=== PATIENT | female | born 1950 | race Caucasian/White ===

== ENCOUNTER 2017-06-14 18:25 | Emergency (ER) | payer OTHER, MEDICAID ==
[~2017-06-14] VITALS: Ht 157.5 cm; Wt 57.5 kg
[~2017-06-14 18:25] MED LIST: SYNT75TA PO
[2017-06-14 18:28] VITALS: BP 189/79; PULSE 72; RESP 18; TEMP 99.1; O2SAT 99
[2017-06-14] MEDS ORDERED: ORPHENADRINE INJ 60 MG/2 ML AMP IM ONE (19:15)
[2017-06-14] MEDS ORDERED: KETOROLAC TROMETHAMINE 60 MG/2 ML (IM) VIAL IM ONE (19:15)
--- NOTE | 2017-06-14 19:42 | PD ---
HPI Chief Complaint: Back/ Neck Pain or Injury Time Seen by Provider: 19:15 Travel History International Travel<30 days: No Contact w/Intl Traveler<30days: No Traveled to known affect area: No History of Present Illness HPI Patient is a 66-year-old female presenting to the emergency for evaluation of right low back pain. Patient states it's been ongoing for approximately week and a half. She has pain when she ambulates and when she extends her leg. The pain radiates from her lower back down the back of her leg. Pain is an 8 out of 10 and states that shooting. Patient has not taken any medications to alleviate the pain. She called her primary doctor today who advised her to come to the emergency department to have x-rays done and he would see her in the office tomorrow. Patient's past medical history includes rheumatoid arthritis, hypothyroidism, diabetes. Patient denies any numbness or weakness in her lower extremities, no bladder or bowel incontinence, no saddle paresthesia. PFSH Past Medical History High Cholesterol: Yes Diabetes: Yes Diminished Hearing: Yes (LEFT ) Diverticulitis: Yes Hypertension: Yes Immune Disorder: Yes (rheumatoid arthritis) Musculoskeletal: Yes (BACK PROBLEMS) Menopausal: Yes Past Surgical History AICD: No Cholecystectomy: Yes Joint Replacement: No Pacemaker: No Other Surgery: No Social History Alcohol Use: No Tobacco Use: No Substance Use: No Allergies-Medications (Allergen,Severity, Reaction): Coded Allergies: ipratropium (Verified Allergy, Severe, 06/14/17) Reported Meds & Prescriptions Reported Meds & Active Scripts Active Tramadol (Tramadol HCl) 50 Mg Tab 50 Mg PO Q6H PRN Meloxicam 15 Mg Tab 15 Mg PO DAILY PRN Reported Synthroid 75 mcg (Levothyroxine Sodium) 75 Mcg Tab 75 Mcg PO DAILY Review of Systems Except as stated in HPI: all other systems reviewed are Neg Musculoskeletal: Positive: Arthralgias, Limited ROM, Pain Physical Exam Narrative GENERAL: Well-developed, well-nourished, alert female. Appears uncomfortable, in no acute distress. SKIN: Warm and dry. HEAD: Atraumatic. Normocephalic. EYES: Pupils equal and round. No scleral icterus. No injection or drainage. ENT: No nasal bleeding or discharge. Mucous membranes pink and moist. NECK: Trachea midline. No JVD. CARDIOVASCULAR: Regular rate and rhythm. RESPIRATORY: No accessory muscle use. Clear to auscultation. Breath sounds equal bilaterally. GASTROINTESTINAL: Abdomen soft, non-tender, nondistended. Hepatic and splenic margins not palpable. MUSCULOSKELETAL: Extremities without clubbing, cyanosis, or edema. No obvious deformities. Tenderness to palpation over right SI joint. Negative Homans sign on right, 2+ dorsalis pedal pulses bilaterally. NEUROLOGICAL: Awake and alert. No obvious cranial nerve deficits. Motor grossly within normal limits. Five out of 5 muscle strength in the arms and legs. Normal speech. PSYCHIATRIC: Appropriate mood and affect; insight and judgment normal. Data Data Last Documented VS Vital Signs Date Time Temp Pulse Resp B/P (MAP) Pulse Ox O2 Delivery O2 Flow Rate FiO2 06/14/17 18:28 99.1 72 18 189/79 (115) 99 Room Air Orders Orders Spine, Lumbar - Ltd (Ap & Lat) (06/14/17 ) Sacroiliac Joints, Bilateral (06/14/17 ) Ketorolac Inj (Toradol Inj) (06/14/17 19:15) Orphenadrine Inj (Norflex Inj) (06/14/17 19:15) MDM Medical Decision Making Medical Screen Exam Complete: Yes Emergency Medical Condition: Yes Interpretation(s) Vital Signs Date Time Temp Pulse Resp B/P (MAP) Pulse Ox O2 Delivery O2 Flow Rate FiO2 06/14/17 18:28 99.1 72 18 189/79 (115) 99 Room Air Differential Diagnosis Sciatic versus discogenic pain versus muscle strain versus muscle spasm versus other Narrative Course Patient is a 66-year-old female that presented for evaluation of right low back pain that has been ongoing for 1 week, there was no preceding injury or trauma or discerning activity. Physical examination appears consistent with sciatica. Imaging was ordered and pending. Patient given Toradol and Norflex for the pain. 2039 patient reassessed, she reports improvement in her pain after administration of Toradol and Norflex. X-rays which were read by the radiologist showed no acute abnormalities, there were degenerative changes noted to the lumbar spine, sacroiliac joints are intact. Exam again appears most consistent with sciatica. Patient is to follow -up with her primary doctor tomorrow as scheduled, she will be given a short course of oral pain medication. She is encouraged to apply warm moist heat to affected area, continue range of motion exercises, avoid exacerbating activities , avoid bed rest. She is encouraged to return to emergency department for any new or worsening symptoms. Patient verbalized understanding of these instructions. Patient is stable for discharge. Diagnosis Primary Impression: Sciatica Qualified Codes: M54.31 - Sciatica, right side Referrals: Primary Care Physician 1 day Patient Instructions: General Instructions, Sciatica (ED) Additional Instructions: Follow-up with your primary doctor tomorrow as scheduled Take medications as needed and as directed for pain Apply warm heat to the affected area, continue range of motion exercises, avoid exacerbating activities, avoid bed rest Return to emergency department for any new or worsening symptoms Med/Other Pt SpecificInfo: Prescription(s) given Scripts Meloxicam (Meloxicam) 15 Mg Tab 15 MG PO DAILY Y for PAIN SCALE 1 TO 10, #30 TAB 0 Refills Prov: Purnima Angel 06/14/17 Disposition: 01 DISCHARGE HOME Condition: Stable Purnima Angel Jun 14, 2017 19:42
--- NOTE | 2017-06-14 20:33 | RADRPT ---
EXAM DATE/TIME: 06/14/2017 19:32 [facility] COMPARISON: CT ABDOMEN & PELVIS W/O CONTRAST, November 06, 2015, 14:24. INDICATIONS : Lower back pain. No known trauma. MEDICAL HISTORY : None. SURGICAL HISTORY : None. ENCOUNTER: Initial ACUITY: 1 week PAIN SCORE: 7/10 LOCATION: sacroilliac. FINDINGS: Frontal and oblique views of the SI joints were performed. There is a symmetric appearance to the SI joints, without evidence of sclerosis or bridging osteophytes. There is degenerative change at the l ower lumbar spine at the L4-L5 level on the left side. There is a stable focal areas of sclerosis in the left ilium. This was present on a prior CT examination. It is nonspecific. CONCLUSION: The sacroiliac joints are intact. Jasen Harrison MD on June 14, 2017 at 20:30 Board Certified Radiologist. This report was verified electronically.
--- NOTE | 2017-06-14 20:39 | RADRPT ---
EXAM DATE/TIME: 06/14/2017 19:30 [facility] COMPARISON: No previous studies available for comparison. INDICATIONS : Lower back pain. No known trauma. MEDICAL HISTORY : None. SURGICAL HISTORY : None. ENCOUNTER: Initial ACUITY: 1 week PAIN SCORE: 7/10 LOCATION: Lumbar spine. FINDINGS: The lumbar vertebral bodies are normal in height. There is a prominent levocurvatu re of the lumbar spine with apex at the L1-L2 level. There is disc space narrowing on the right side at the L1-L2 and L2-L3 levels. There is more diffuse narrowing at the L3-L4 level. There is disc sp petros narrowing on the left side at the L4-L5 level. The L5-S1 disc space is preserved. There are asy mmetric osteophytes following the asymmetric disc space narrowing. The sacroiliac joints are intact. Clips are seen in the right upper quadrant. CONCLUSION: Degenerative change as described above. Jasen Harrison MD on June 14, 2017 at 20:29 Board Certified Radiologist. This report was verified electronically.
[2017-06-14] MEDS ORDERED: MELO-1 PO (21:03)
[2017-06-14] MEDS ORDERED: TRAM50TA PO (21:03)
== END 2017-06-14 21:35 | disposition home or self-care (01) ==
LOC: NEPK 18:25
DX: M54.31 Sciatica, right side (principal); I10 Essential (primary) hypertension; M06.9 Rheumatoid arthritis, unspecified; E11.9 Type 2 diabetes mellitus without complications; E78.00 Pure hypercholesterolemia, unspecified
CPT/HCPCS: 72100; 72202; 96372; 99284; J1885; J2360

== ENCOUNTER 2017-09-30 15:32 | Emergency (ER) | payer OTHER, MEDICAID ==
[~2017-09-30] VITALS: Ht 157.5 cm; Wt 57.0 kg
[~2017-09-30 15:32] MED LIST changes: +MELO15TA20 PO
[2017-09-30] MEDS ORDERED: ACETAMINOPHEN 325 MG TAB PO ONE (16:15)
[2017-09-30] MEDS ORDERED: diphenhydrAMINE HCL 50 MG/ML VIAL IV PUSH PRN (16:15)
[2017-09-30] MEDS ORDERED: SODIUM CHLOR 0.9% 250 ML INJ 250 ML IV ONE (16:15)
[2017-09-30] MEDS ORDERED: ACETAMINOPHEN 325 MG TAB PO PRN (16:15)
[2017-09-30] MEDS ORDERED: diphenhydrAMINE HCL 50 MG/ML VIAL IV PUSH ONE (16:15)
[2017-09-30 16:30] VITALS: BP 141/61; PULSE 71; RESP 20; TEMP 98.5; O2SAT 95
[2017-09-30] MEDS ORDERED: ONDANSETRON HCL 4 MG/2 ML VIAL IVP ONE (16:30)
[2017-09-30] MEDS ORDERED: MORPHINE SULFATE 2 MG/ML INJ IV PUSH ONE (16:30)
[2017-09-30] MEDS ORDERED: SODIUM CHLORIDE 0.9% FLUSH 10 ML FLUSH IV FLUSH PRN (16:30)
[2017-09-30 17:02] LABS: AUTOMATED NEUTROPHIL # 3.6 TH/MM3 (1.8-7.7); BASOPHIL % 0.2 % (0.0-2.0); EOSINOPHIL # 0.1 TH/MM3 (0-0.4); EOSINOPHIL % 1.7 % (0.0-4.0); HEMATOCRIT 36.8 % (35.0-46.0); HEMOGLOBIN 12.5 GM/DL (11.6-15.3); LYMPH % 45.3 % (9.0-44.0); LYMPHOCYTE # 3.6 TH/MM3 (1.0-4.8); MEAN CELL VOLUME 94.1 FL (80.0-100.0); MEAN CORPUSCULAR HEMOGLOBIN 32.1 PG (27.0-34.0); MEAN CORPUSCULAR HGB CONC 34.1 % (32.0-36.0); MEAN PLATELET VOLUME 9.1 FL (7.0-11.0); MONO % 6.3 % (0.0-8.0); MONOCYTE # 0.5 TH/MM3 (0-0.9); NEUT % 46.5 % (16.0-70.0); PLATELET COUNT 347 TH/MM3 (150-450); RED BLOOD COUNT 3.91 MIL/MM3 (4.00-5.30); WHITE BLOOD COUNT 7.8 TH/MM3 (4.0-11.0)
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
[2017-09-30 17:11] LABS: ALBUMIN 4.8 GM/DL (3.4-5.0); ALT (GPT) 42 U/L (10-53); AST (GOT) 24 U/L (15-37); BICARBONATE 24.9 MEQ/L (21.0-32.0); BLOOD UREA NITROGEN 22 MG/DL (7-18); CALCIUM 10.2 MG/DL (8.5-10.1); CHLORIDE 105 MEQ/L (98-107); CREATININE 1.39 MG/DL (0.50-1.00); GLOMERULAR FILTRATION RATE 38 ML/MIN (>89); GLUCOSE,RANDOM 142 MG/DL (74-106); SODIUM (NA) 140 MEQ/L (136-145)
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
[2017-09-30 17:12] LABS: INTERNATIONAL NORMALIZED RATIO 1.1 RATIO; PROTHROMBIN TIME - PATIENT 10.9 SEC (9.8-11.6)
[2017-09-30 17:14] LABS: ALKALINE PHOSPHATASE 44 U/L (45-117); TOTAL BILIRUBIN ADULT 0.4 MG/DL (0.2-1.0); TOTAL PROTEIN 8.3 GM/DL (6.4-8.2)
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
[2017-09-30] MEDS ORDERED: IBUP-232 PO (17:30)
[2017-09-30] MEDS ORDERED: TRAM50TA PO ×2 (17:30→17:52)
[2017-09-30 17:38] VITALS: BP 131/71
== END 2017-09-30 17:55 | disposition home or self-care (01) ==
LOC: NEPD 15:32
DX: S93.401A Sprain of unspecified ligament of right ankle, initial encounter (principal); V29.3XXA Motorcycle rider (driver) (passenger) injured in unspecified nontraffic accident, initial encounter; E78.00 Pure hypercholesterolemia, unspecified; E11.9 Type 2 diabetes mellitus without complications; I10 Essential (primary) hypertension; M06.9 Rheumatoid arthritis, unspecified
CPT/HCPCS: 73590; 73610; 80053; 85025; 85610; 85730; 96374; 96375; 99284; E0113; J2270; J2405; L1906

== ENCOUNTER 2017-10-11 10:13 | Emergency (ER) | payer OTHER, MEDICAID ==
[~2017-10-11] VITALS: Ht 157.5 cm; Wt 55.0 kg
[~2017-10-11 10:13] MED LIST changes: +IBUP-232 PO; +TRAM50TA PO
[2017-10-11 10:14] VITALS: BP 138/98; PULSE 109; RESP 20; TEMP 97.9; O2SAT 97
[2017-10-11] MEDS ORDERED: METF1000 PO (10:54)
[2017-10-11] MEDS ORDERED: ACYC800T PO (10:54)
[2017-10-11] MEDS ORDERED: GLIP5TAB8 PO (10:54)
[2017-10-11] MEDS ORDERED: DOXY100C PO (10:54)
[2017-10-11] MEDS ORDERED: ONDANSETRON ODT 4 MG TAB PO ONE (11:00)
[2017-10-11 11:02] VITALS: BP 125/70; PULSE 93; RESP 20; O2SAT 99
[2017-10-11] MEDS ORDERED: PROPARACAINE HCL 0.5% OPHT SOLN 15 ML BTL LEFT EYE ONE (11:15)
--- NOTE | 2017-10-11 11:23 | PD ---
HPI Chief Complaint: GI Complaint Time Seen by Provider: 10:51 Travel History International Travel<30 days: No Contact w/Intl Traveler<30days: No Traveled to known affect area: No History of Present Illness HPI 67-year-old female with PMH of RA on methotrexate, DM on glipizide and Metformin presents to the ED for evaluation of 4 day history of chills, light sensitivity, painful, pustular rash of the left forehead and scalp. She rates her pain 10/10, waxing and waning. No alleviating factors reported. She endorses increased tearing of left eye, photophobia, blurred vision. She has never had an outbreak of shingles before. She saw her primary care provider on Monday who prescribed doxycycline and valacyclovir. She states that she took a few doses of the medication but had such terrible nausea and vomiting that she has been noncompliant. She's been taking Tylenol for pain, last does last night. She states that she called the office today and was told to come to the ED for evaluation. She does not have an detective bureau chief. PFSH Past Medical History High Cholesterol: Yes Diabetes: Yes Patient Takes Glucophage: Yes (METFORMIN AND GLIPIZIDE) Diminished Hearing: Yes (LEFT ) Diverticulitis: Yes Gastrointestinal Disorders: Yes (S/P COLONOSCOPY WITH DX COLITIS) Hypertension: Yes Immune Disorder: Yes (rheumatoid arthritis) Musculoskeletal: Yes (BACK PROBLEMS) Immunizations Current: No Menopausal: Yes Past Surgical History AICD: No Cholecystectomy: Yes Joint Replacement: No Pacemaker: No Other Surgery: No Social History Alcohol Use: No Tobacco Use: No Substance Use: No Allergies-Medications (Allergen,Severity, Reaction): Coded Allergies: ipratropium (Verified Allergy, Severe, 10/11/17) tramadol (Verified Allergy, Unknown, 10/11/17) Reported Meds & Prescriptions Reported Meds & Active Scripts Active Reported Acyclovir 800 Mg Tab 800 Mg PO 5 TIMES A DAY Doxycycline Hyclate 100 Mg Cap 100 Mg PO BID Glipizide 5 Mg Tab 5 Mg PO DAILY Take 30 minutes before a meal Metformin (Metformin HCl) 1,000 Mg Tab 1,000 Mg PO BIDPC Review of Systems Except as stated in HPI: all other systems reviewed are Neg Physical Exam Narrative GENERAL: Well-nourished, well-developed petite, anxious female in no acute distress. SKIN: Focused skin assessment warm/dry. Pustular rash distributed over the left forehead and scalp, consistent with herpes Zoster. Positive Husain sign. HEAD: Normocephalic. EYES: No scleral icterus. Left eye injected and draining. Moderate edema of the left upper lid. OD pupil reactive to light, OS pupil nonreactive. Fluorescein exam of OS reveals no visible dendritic lesion. FUNDUSCOPIC EXAM: The left funduscopic exam appeared within normal limits without papilledema, A- V nicking or blood associated with the optic disc. NECK: Supple, trachea midline. No JVD or lymphadenopathy. CARDIOVASCULAR: Regular rate and rhythm without murmurs, gallops, or rubs. RESPIRATORY: Breath sounds clear and equal bilaterally. No accessory muscle use. GASTROINTESTINAL: Abdomen soft, non-tender, nondistended. MUSCULOSKELETAL: No cyanosis, or edema. BACK: Nontender without obvious deformity. No CVA tenderness. Data Data Last Documented VS Vital Signs Date Time Temp Pulse Resp B/P (MAP) Pulse Ox O2 Delivery O2 Flow Rate FiO2 10/11/17 11:02 93 20 125/70 (88) 99 Room Air 10/11/17 10:14 97.9 Orders Orders Blood Glucose (10/11/17 10:59) Ondansetron Odt (Zofran Odt) (10/11/17 11:00) Proparacaine 0.5% Opth Soln (Alcaine 0.5 (10/11/17 11:15) Acetaminophen (Tylenol) (10/11/17 11:30) Acyclovir (Zovirax) (10/11/17 11:30) ^ Insert Iv (10/11/17 14:00) Acyclovir Inj (Zovirax Inj) (10/11/17 14:00) MDM Medical Decision Making Medical Screen Exam Complete: Yes Emergency Medical Condition: Yes Differential Diagnosis Herpes zoster versus herpes zoster ophthalmicus versus iritis versus other Narrative Course 67-year-old female with PMH of RA on methotrexate, DM on glipizide and Metformin presents to the ED for evaluation of 4 day history of chills, painful , pustular rash of the left forehead and scalp, left eye pain. She endorses increased tearing of left eye, photophobia, blurred vision. PCP prescribed doxycycline and valacyclovir 2 days ago. She has been noncompliant 2/2 N/V. She 's been taking Tylenol for pain, last does last night. She does not have an detective bureau chief. Patient is tachycardic and hypertensive on presentation. This resolves in the exam room. Physical exam reveals pustular rash over the left forehead and scalp. There is a positive Husain sign. The left eyelid is edematous, left eye is tearful and injected. Fluorescein staining reveals no dendritic lesion. However, the patient has intense photophobia and the left the pupil is nonreactive to light. Suspect iritis. I offered the patient narcotic pain medications which she refused, stating " they make me crazy." She was administered 4 mg Zofran ODT, 500 mg Tylenol p.o. and 800 mg acyclovir p.o. She was initially refusing the acyclovir but once I explained the importance of the medication she consented. We do not have ophthalmology coverage today. I attempted to speak with Dr. [place] who was unavailable. I spoke with Dr.Shalesh Berg at [facility]. He recommends that the patient be seen by an detective bureau chief in the area TODAY. He recommended a friend, Dr. Osei Garcia. I spoke with Dr. Garcia by phone who agreed to see the patient. However, his office was unwilling to schedule the patient today secondary to insurance issues. I discussed the plan for transfer to outside hospital with the patient. She is agreeable. IV was established. The patient was administered 500mg acyclovir IV. Dr. Siddiqi placed a second call to [facility] and spoke with the transfer center. Plan to attempt transfer to [facility]. Please see Dr. Siddiqi's note for further details. Diagnosis Primary Impression: Herpes zoster ophthalmicus, left eye Maryanne Dawn Oct 11, 2017 11:23
[2017-10-11] MEDS ORDERED: ACETAMINOPHEN 500 MG CPLT PO ONE ×2 (11:30→17:30)
[2017-10-11] MEDS ORDERED: ACYCLOVIR 800 MG TAB PO ONE (11:30)
[2017-10-11] MEDS ORDERED: ACYCLOVIR INJ 500 MG in SODIUM CHLORIDE 0.9% INJ 100 ML IV ONE (14:00)
--- NOTE | 2017-10-11 14:31 | PD ---
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 Patient was seen by her primary care on Monday who started her on acyclovir and adequate quantity. Patient has been nauseous and has not taken the medication as per the prescription direction. Today she came in because she has worsening symptoms and intense pain. She was seen initially by my PA and I am supervising her. Upon exam patient has significant blepharospasm and conjunctival injection. Some photophobia as well. She complains of some blurred vision but she has good finger counting. Good extraocular eye movement. Patient was given a dose of p.o. acyclovir and IV acyclovir here. There is no ophthalmology coverage today and hence initially my PA spoke with the telecommunications field technician in [facility] Dr. Aden Berg. Please refer to her note regarding this conversation. However as per him patient should be seen by an telecommunications field technician today and should not wait till later. [facility] was called back to be informed that we did not have any ophthalmology coverage and hence patient could not be seen by an telecommunications field technician in the hospital. And there was no telecommunications field technician who would accept her or obligated to accept her if they were not human resources operations director. I spoke with the person in the transfer center myself and I was told on a recorded line that as per the telecommunications field technician he will not see the patient and he wants a local telecommunications field technician to see the patient since "there are plenty in this area". At this point the plan was made to transfer her somewhere else like in [place]. I discussed with the ophthalmology resident Dr. Hernandez from [place]. He accepted the case and I spoke with the ER physician Dr. Perez who accepted the transfer. Patient will be going by ambulance since she has no one to drive her to [place]. Awaiting for the ambulance to transfer her. Legal paperwork's are being done currently. Data Data Last Documented VS Orders Orders Blood Glucose (10/11/17 10:59) Ondansetron Odt (Zofran Odt) (10/11/17 11:00) Proparacaine 0.5% Opth Soln (Alcaine 0.5 (10/11/17 11:15) Acetaminophen (Tylenol) (10/11/17 11:30) Acyclovir (Zovirax) (10/11/17 11:30) ^ Insert Iv (10/11/17 14:00) Acyclovir Inj (Zovirax Inj) (10/11/17 14:00) Acetaminophen (Tylenol) (10/11/17 17:30) MDM Supervised Visit with YOLANDA: Yes Physician Communication Physician Communication Dr. Hernandez, Dr. Perez from [place] Diagnosis Primary Impression: Herpes zoster ophthalmicus, left eye Disposition: 70 TRANSFER TO OTHER FACILITY Jose L Siddiqi MD Oct 11, 2017 14:31
[2017-10-11 15:24] VITALS: BP 107/71; PULSE 95; RESP 16; O2SAT 96
[2017-10-11 17:34] VITALS: BP 111/58
== END 2017-10-11 17:35 | disposition short-term general hospital (02) ==
LOC: NEPE 10:13
DX: B02.30 Zoster ocular disease, unspecified (principal); E11.9 Type 2 diabetes mellitus without complications; M06.9 Rheumatoid arthritis, unspecified; Z79.84 Long term (current) use of oral hypoglycemic drugs
CPT/HCPCS: 96365; 99285; J0133